=== PATIENT | female | born 1980 | race Caucasian/White ===

== ENCOUNTER 2018-11-03 07:31 | Emergency (ER) | payer SELFPAY ==
[~2018-11-03] VITALS: Ht 170.2 cm; Wt 74.8 kg
[2018-11-03 07:43] VITALS: Ht 170.2 cm; Wt 74.8 kg
[2018-11-03 08:49] LABS: BASOPHIL % 0.6 % (0-2); PLATELET COUNT 308 x10^3mcL (130-400); RED CELL DISTRIBUTION WIDTH 14.4 % (11.5-14.5)
[2018-11-03 08:54] LABS: CALCIUM 9.4 mg/dL (8.5-10.1); CARBON DIOXIDE 25.6 mmol/L (21-32); CHLORIDE SERUM 105 mmol/L (98-107); CREATININE SERUM 0.7 mg/dL (0.6-1.0); GFR1 > 60 mL/min; GLUCOSE SERUM 108 mg/dL (74-106); POTASSIUM SERUM 4.2 mmol/L (3.5-5.1); SODIUM SERUM 142 mmol/L (136-145)
[2018-11-03 09:08] LABS: FREE T4 0.99 ng/dL (0.76-1.46)
[2018-11-03 10:00] VITALS: BP 133/77
== END 2018-11-03 10:00 | disposition home or self-care (01) ==
LOC: ED 07:31
PROVIDERS: Emergency Medicine
DX: R42 Dizziness and giddiness (principal); H00.12 Chalazion right lower eyelid; R11.2 Nausea with vomiting, unspecified
CPT/HCPCS: 84439; J2405; J7030; J8597